=== PATIENT | female | born 1945 | race Hispanic/Latino ===

== ENCOUNTER 2017-02-01 08:39 | Day surgery (SDC) | payer MEDICARE ==
[2017-02-01 10:08] LABS: Blood Urea Nitrogen 14 mg/dL (7-17)
[2017-02-01] MEDS ORDERED: NITROSTAT SL ONE (10:45)
[2017-02-01] MEDS ORDERED: LOPRESSOR IV ONE ×2 (10:45→10:49)
[2017-02-01] MEDS ORDERED: ATROPINE 0.1% (CARDIAC) ONE (10:47)
[2017-02-01] MEDS ORDERED: ATROPINE 0.1% (CARDIAC) IV ONE (10:51)
[2017-02-01 11:33] VITALS: BP 135/68
--- NOTE | 2017-02-05 02:46 | Procedure Note ---
ORDERING PHYSICIAN: Dr. Ventura Flood. INDICATION: Equivocal treadmill stress test. DESCRIPTION OF PROCEDURE: After obtaining written consent, the patient was brought to the CT lounge. The patient was given 0.4 mg of sublingual nitroglycerin for coronary vasodilatation. The patient was scanned at a pitch of 0.22. The heart rate during the 3D acquisition was 60 beats per minute. The type of contrast used was an Omnipaque 100 mL per volume. No complications occurred during the procedure. FINDINGS: 1. Poor quality study limited by an incomplete opacification of the coronary artery tree due to incorrect bolus timing as well as slab artifact secondary to arrhythmias during 3D acquisition. 2. The calcium score is 0 indicating the absence of calcified atherosclerotic heart disease. This is a very low cardiovascular disease risk category. 3. This is a right dominant circulation. 4. The left main originates from the left coronary cusp. The left main exhibits no evidence of obstructive disease. 5. The left anterior descending artery is poorly opacified. The proximal and mid segment of the LAD are most likely free of any significant obstructive disease. The distal LAD, however, is not completely visualized. Cannot exclude the possibility of a distal LAD soft plaque. The first diagonal artery is small in caliber. The second diagonal artery is normal in caliber, I cannot exclude a soft plaque in the distal segment of the second diagonal artery. 6. The left circumflex artery is also incompletely opacified. The proximal and mid segment of the left circumflex artery are free of any obstructive disease. The first obtuse marginal is small and is not visualized. The second obtuse marginal is normal in caliber, the proximal and mid segment of the second obtuse marginal is free of any obstructive disease; however, the distal segment is not well visualized. The AV groove vessel is also not visualized. 7. The ramus intermedius is normal in caliber. Only the proximal segment of the ramus intermedius was visualized. The mid and distal segments are not visualized. 8. The right coronary artery originates from the right coronary cusp. The right coronary artery is a dominant vessel. The right coronary artery ostium, proximal, mid and distal segments are free of any obstructive disease. There is a large posterior descending artery originating from the right coronary artery. This artery appears to be free of any significant disease in the proximal and mid segment; however, there is a possibility of a soft obstructive plaque in the distal segment. This cannot be ruled in or rule out 100% due to the quality of the study. The left ventricle is normal in size. The left ventricular ejection fraction is measured at 58%. No regional wall motion abnormality noted. 9. The left atrium is normal in size. There is no filling defect noted in the left atrial appendage. The 4 pulmonary veins are noted entering the left atrium. 10. The aortic valve is trileaflet. The ascending and descending thoracic aorta are normal in caliber. 11. The right ventricle is grossly normal in size and the right atrium also was grossly normal in size. No detectable interatrial defect. 12. There is no evidence of a pericardial effusion. 13. The pulmonary artery is normal in size measuring 23 mm in diameter. 14. Extracardiac structures will be separately interpreted by the attending radiologist. Please refer to the separate interpretation. IMPRESSION: 1. Poor quality 64-slice cardiac CT limited by incomplete opacification of the coronary tree secondary to incorrect bolus timing as well as slab artifact secondary to cardiac arrhythmias. 2. The calcium score is 0 indicating a very low cardiovascular disease risk. 3. This is a right dominant circulation. The left main, proximal and mid LAD, proximal and mid circumflex, proximal and mid right coronary artery are free of any obstructive disease; however, the distal segment of these vessels cannot be well visualized. Therefore, a soft plaque cannot be completely excluded and clinical correlation is recommended. Please refer to the detail findings in the body of the text. 4. Normal left ventricular size and systolic function with an ejection fraction measured at 58% with normal regional wall motion. RECOMMENDATION: The visualized segments of the ascending and descending thoracic aorta, pulmonary artery are within normal limits. JOB# [id number] CONNIE/HAYDEN
== END 2017-02-01 08:40 | disposition home or self-care (01) ==
LOC: CATHLABREC 08:39 → EDSTATUS 08:45
PROVIDERS: ATTEND Internal Medicine
DX: R94.39 Abnormal result of other cardiovascular function study (principal)
CPT/HCPCS: 36415; 75574; 82565; 84520; J0461; Q9967